=== PATIENT | male | born 1965 | race Caucasian/White ===

== ENCOUNTER 2019-12-21 13:42 | Outpatient (CLI) | payer OTHER, SELFPAY ==
--- NOTE | ~2019-12-21 | US_ITS ---
US breast BI complete INDICATION: Bilateral palpable breast masses TECHNIQUE: Dedicated targeted bilateral breast ultrasound COMPARISON: No prior studies for comparison. FINDINGS: The breasts are composed of normal heterogeneous echotexture without focal solid or cystic mass in the areas of palpable concern. IMPRESSION: 1: Normal targeted bilateral breast ultrasound. BI-RADS CATEGORY 1 - NEGATIVE Reviewed, dictated and finalized at location A. [employer]
== END 2019-12-21 13:43 | disposition home or self-care (01) ==
PROVIDERS: PCP Internal Medicine; Visit Provider Nurse Practitioner
DX: N63.0 Unspecified lump in unspecified breast (principal)
CPT/HCPCS: 76641

== ENCOUNTER → 2020-04-11 11:44 | Outpatient (CLI) | payer OTHER, SELFPAY ==
[2020-04-11 22:51] LABS: SARS-CoV-2 RNA PCR Negative
== END ==
PROVIDERS: PCP Internal Medicine; Visit Provider Internal Medicine
DX: Z20.822 Contact with and (suspected) exposure to COVID-19 (principal)
CPT/HCPCS: C9803; U0003; U0005

== ENCOUNTER 2020-09-05 01:49 | Day surgery (SDC) | payer OTHER, SELFPAY ==
[2020-08-25 14:55] VITALS: BMI 29.9
[2020-09-05 08:28] VITALS: BP 135/95; PULSE 63; RESP 20; TEMP 36.2; O2SAT 98; BMI 29.2
[2020-09-05] MEDS: LACTATED RINGERS 1,000 ML 150 ML IV CONT (08:37)
--- NOTE | 2020-09-05 09:14 | WPDANESEPPF ---
Anes - Initial Pre Proc Eval Procedure: Operation Date: 09/05/20 09:30 Proposed Procedures p Screening Colonoscopy - Suleman Rader MD Date/Time: 09/05/20 09:14 Surgeon: Suleman Rader MD Pre Op Diagnosis: family hx of colon polyps, neoplasm screening Patient Data Age: 55 Gender: M Height: 1.83 m Weight: 97.8 kg Last Vital Signs Temp 97.2 F L 09/05/20 08:28 Pulse 63 09/05/20 08:28 Resp 20 09/05/20 08:28 BP 135/95 H 09/05/20 08:28 Pulse Ox 98 09/05/20 08:28 Allergies Allergy/AdvReac Type Severity Reaction Status Date / Time yellow dye Allergy Unknown Swelling Verified 09/05/20 08:25 of Lip/Tongue/Throat Home Medications Medication Instructions Recorded Confirmed Type metoprolol succinate 25 mg See Rx Instructions .ROUTE 01/23/20 08/25/20 Rx tablet,extended release 24 hr .COMPLEX #90 tablet omeprazole 40 mg capsule,delayed See Rx Instructions .ROUTE 01/23/20 08/25/20 Rx release .COMPLEX #90 cap Patient hx anesthesia problems: none Family hx anesthesia problems: none PMFSH Past Medical History Medical History (Updated 09/05/20 @ 09:13 by Zeeshan Trinidad MD) Mixed hyperlipidemia Family History Family History Father Hypertension Family history of lung cancer Mother Hypertension Social History Social History Smoking packs per day: 1 Smoking cigarettes per day: 20.0 Years smoked: 15 Smoking pack-years: 15.00 Smoking status: Former smoker Smoking end date: 02/15/00 Alcohol intake: current Drinks per week: 12 Substance use: current Substance use type: marijuana Last use: 08/24/2020 Living arrangements: with family Spiritual care concerns: No Anes - Eval Final PreProcedure Day of Procedure 09/05/20 09:14 Patient weight: overweight Heart: regular rate and rhythm Lungs: clear to auscultation Airway: Mallampati scale class II Neurological: alert and oriented and dysarthria Last oral intake: >/= 8 hours ASA classification: II Emergent: no Anesthetic plan: proceed Anesthesia type and monitoring: general GIVS and standard monitoring Informed Consent: The patient's anesthetic plan and its attendant risks and benefits were discussed with the patient/family/POA. Questions were solicited and answers provided to the satisfaction of the patient/family/POA.
--- NOTE | 2020-09-05 09:14 | PM.HPGS ---
History of Present Illness History of Present Illness Consent: Risks, benefits, and alternatives have been discussed and questions answered. Patient agrees to proceed with procedure. Chief complaint: family hx of colon polyps, neoplasm screening Narrative: Darnell Lagos is a 55 year old male here for screening colonoscopy, last one about 7 years ago. Review of Systems Constitutional: Constitutional: Denies headache(s) and Denies weakness Eyes: Eyes: Denies blurry vision ENT: Reports Normal hearing present, Denies headache(s) and Denies neck pain Cardiovascular: Cardiovascular: Denies chest pain and Denies dyspnea Respiratory: Respiratory: Denies dyspnea Gastrointestinal: Gastrointestinal: Reports no additional gastrointestinal complaints Genitourinary: Genitourinary: Denies dysuria Musculoskeletal: Musculoskeletal: Denies neck pain Integumentary/Breasts: Skin/Breast: Denies dry skin Neurologic: Reports Normal hearing present, Denies headache(s) and Denies weakness Psychiatric: Psychiatric: Denies anxiety Endocrine: Endocrine: Denies change in body appearance Hematologic/Lymphatic: Hematologic/Lymphatic: Denies easy bleeding Allergic/Immunologic: Allergic/Immunologic: Denies urticaria PMFSH Past Medical History Medical History (Updated 09/05/20 @ 09:13 by Zeeshan Trinidad MD) Mixed hyperlipidemia Family History Family History Father Hypertension Family history of lung cancer Mother Hypertension Social History Social History Smoking packs per day: 1 Smoking cigarettes per day: 20.0 Years smoked: 15 Smoking pack-years: 15.00 Smoking status: Former smoker Smoking end date: 02/15/00 Alcohol intake: current Drinks per week: 12 Substance use: current Substance use type: marijuana Last use: 08/24/2020 Living arrangements: with family Spiritual care concerns: No Meds Home Medications and Allergies Home Medications Medication Instructions Recorded Confirmed Type metoprolol succinate 25 mg See Rx Instructions .ROUTE 01/23/20 08/25/20 Rx tablet,extended release 24 hr .COMPLEX #90 tablet omeprazole 40 mg capsule,delayed See Rx Instructions .ROUTE 01/23/20 08/25/20 Rx release .COMPLEX #90 cap Allergies Allergy/AdvReac Type Severity Reaction Status Date / Time yellow dye Allergy Unknown Swelling Verified 09/05/20 08:25 of Lip/Tongue/Throat Vital Signs Vital Signs - 24 hr 09/05/20 08:28 Temperature 97.2 F L Pulse Rate 63 Respiratory Rate 20 Blood Pressure 135/95 H Pulse Oximetry 98 Exam Const: General: comfortable and no acute distress HENMT: General nose exam: Normal nares present Eyes: General: appearance normal, both eyes and all related structures Neck: Neck: no JVD Resp: Auscultation: clear to auscultation bilaterally Cardio: Rate: regular rate Rhythm: regular rhythm GI: Inspection: non-distended GI Palp: Yes Soft to palpation Skin: General skin exam: normal color Neuro: General: gait normal Speech: normal speech Extrem: General: normal to inspection Psych: Mental Status: mental status grossly normal Assessment and Plan Assessment and plan (1) Screening for colon cancer: Code(s): Z12.11 - Encounter for screening for malignant neoplasm of colon Status: Acute Assessment and Plan: colonoscopy
[2020-09-05 09:34] VITALS: BP 112/75; PULSE 78; RESP 28; O2SAT 98
[2020-09-05 09:44] VITALS: BP 109/96; PULSE 63; RESP 19; O2SAT 96
[2020-09-05 09:54] VITALS: BP 121/69; PULSE 63; RESP 20; O2SAT 99
== END 2020-09-05 10:00 | disposition home or self-care (01) ==
PROVIDERS: PCP Internal Medicine; Visit Provider Internal Medicine Gastroenterology
PROC: 0DJD8ZZ Inspection of Lower Intestinal Tract, Via Natural or Artificial Opening Endoscopic (ICD-10-PCS; CPT 45378; principal; 2020-09-05 09:30)
DX: Z12.11 Encounter for screening for malignant neoplasm of colon (principal); K57.30 Diverticulosis of large intestine without perforation or abscess without bleeding; D12.5 Benign neoplasm of sigmoid colon; D12.8 Benign neoplasm of rectum; E78.2 Mixed hyperlipidemia; Z87.891 Personal history of nicotine dependence; F12.90 Cannabis use, unspecified, uncomplicated
CPT/HCPCS: 45385; 88305; J2704; J7120

== ENCOUNTER 2022-06-27 16:54 | Emergency (ER) | payer OTHER, SELFPAY ==
[2022-06-27 16:56] VITALS: BP 138/92; PULSE 90; RESP 16; TEMP 36.9; O2SAT 97
--- NOTE | 2022-06-27 17:27 | ED.SKABFB ---
HPI - Skin/Abscess/Foreign Bdy General Chief complaint: Skin/Abscess/Foreign Body Stated complaint: SPIDER BITE R THUMB Time Seen by Provider: 06/27/22 17:04 History of Present Illness HPI narrative: 57-year-old male reports for evaluation of what he thinks is a spider bite to his right thumb. Patient states yesterday he put his hand under a boat cover, felt a sharp sensation and thought he had cut himself. He did not actively see a spider bite him. States he woke up this morning with increased redness and swelling. Reports he opened up the lesion and it began draining yellow pus. He denies fever, body aches, chills, n/v/d, headache, vision changes, focal numbness or weakness. States he cleaned the area with alcohol and has been applying antibiotic ointment. He sought health care via telehealth and was advised to come to the ED for further evaluation and a tetanus shot. Pt reports he does have a PCP. Related Data Allergies Allergy/AdvReac Type Severity Reaction Status Date / Time yellow dye Allergy Unknown Swelling Verified 06/27/22 16:59 of Lip/Tongue/Throat Review of Systems Review of Systems: CONSTITUTIONAL: Denies fever, chills EYES: Denies visual changes, redness, or discharge. ENT: Denies rhinorrhea, congestion, sore throat, or otalgia. CARDIOVASCULAR: Denies chest pain, palpitations, or edema. RESPIRATORY: Denies cough or dyspnea. GASTROINTESTINAL: Denies abdominal pain, nausea, vomiting, or diarrhea. GENITOURINARY: Denies dysuria or hematuria. SKIN: See HPI MUSCULOSKELETAL: Denies back pain, joint pain, or myalgia. NEUROLOGIC: Denies headache, numbness, dizziness, or weakness. PSYCHIATRIC: Denies anxiety or depression. [facility] Past Medical History Medical History Mixed hyperlipidemia Family History Family History Father Hypertension Family history of lung cancer Mother Hypertension Social History Social History Smoking packs per day: 1 Smoking cigarettes per day: 20.0 Years smoked: 15 Smoking pack-years: 15.00 Smoking status: Former smoker Smoking end date: 02/15/00 Alcohol intake: current Drinks per week: 12 Substance use: current Substance use type: marijuana Last use: 08/24/2020 Living arrangements: with family Spiritual care concerns: No Exam Narrative: GENERAL: Well-appearing, in no acute distress. HEAD: Normocephalic NECK: Supple. CHEST: No respiratory distress. Clear to auscultation, no adventitious breath sounds. HEART: Regular rate and rhythm. No murmur heard. Normal peripheral pulses. EXTREMITIES: Normal range of motion. No edema. SKIN: 1cm area of erythema with a central punctum to the proximal aspect of the R thumb. No areas of fluctuation or induration. No necrosis. Lesion drained scant amount of serosanguineous fluid when pressure applied. No purulence. Full range of motion of thumb. No circumferential edema. Cap refill less than 2. Radial pulse 2+. Sensation intact. NEURO: No focal deficits. Alert and oriented x3. PSYCH: Normal mood and affect. Course Vital Signs Vital signs: Vital Signs Temperature 98.4 F 06/27/22 16:56 Pulse Rate 90 06/27/22 16:56 Respiratory Rate 16 06/27/22 16:56 Blood Pressure 138/92 H 06/27/22 16:56 Pulse Oximetry 97 06/27/22 16:56 Oxygen Delivery Room Air 06/27/22 16:56 Temperature 98.4 F 06/27/22 16:56 Pulse Rate 90 06/27/22 16:56 Respiratory Rate 16 06/27/22 16:56 Blood Pressure 138/92 H 06/27/22 16:56 Pulse Oximetry 97 06/27/22 16:56 Oxygen Delivery Room Air 06/27/22 16:56 MDM - Skin/Abscess/Foreign Bdy MDM Narrative Medical decision making narrative: 57-year-old male reports for evaluation of a suspected spider bite to the proximal aspect of his right thumb that occurred yesterday.
[2022-06-27] MEDS: TETANUS,DIPHTHERIA,AC PERTUSSIS ADULT (0.5 ML) BOOSTRIX IM (17:49)
== END 2022-06-27 18:04 | disposition home or self-care (01) ==
PROVIDERS: Emergency Provider Physician Assistant; PCP Internal Medicine
DX: L03.011 Cellulitis of right finger (principal); E78.2 Mixed hyperlipidemia; Z23 Encounter for immunization; Z87.891 Personal history of nicotine dependence
CPT/HCPCS: 90471; 90715; 99283